=== PATIENT | female | born 1995 | race Caucasian/White ===

== ENCOUNTER 2016-06-24 04:00 | Inpatient (IN) ==
[2016-06-24] MEDS ORDERED: miSOPROStol 25 MCG TABLET VG PRN (04:30)
[2016-06-24] MEDS ORDERED: Naloxone 0.4 MG/ML INJ IVP PRN (04:30)
[2016-06-24] MEDS ORDERED: Ondansetron 4 MG/2 ML VIAL IVP PRN (04:30)
[2016-06-24] MEDS ORDERED: Famotidine 20 MG/2 ML VIAL IVP PRN (04:30)
[2016-06-24] MEDS ORDERED: Ringers Solution, Lactated 1,000 ML IVC SCH (04:30)
[2016-06-24] MEDS ORDERED: Metoclopramide 10 MG/2 ML VIAL IVP PRN (04:50)
[2016-06-24 04:58] LABS: Basophils % 0.4 %; Eosinophils # 0.1 K/mcL (0.0-0.6); Eosinophils % 0.7 %; Hematocrit 38.3 % (35.3-44.9); Hemoglobin 13.4 g/dL (11.5-15.4); Lymphocytes # 2.2 K/mcL (0.6-4.6); Lymphocytes % 19.4 %; Mean Corpuscular Volume 91.4 fL (83.0-100.0); Mean Platelet Volume 11.7 fL (9.4-12.4); Monocytes # 0.8 K/mcL (0.0-1.3); Monocytes % 6.8 %; Platelet Count 186 K/mcL (140-400); Red Blood Count 4.19 M/mcL (3.82-4.97); Red Cell Distribution Width 12.1 % (11.5-14.5); Segmented Neutrophils % 71.7 %
[2016-06-24] MEDS ORDERED: *HR* Nalbuphine 20 MG/ML AMPUL IVP PRN (07:32)
[2016-06-24] MEDS ORDERED: *HR* Nalbuphine 20 MG/ML AMPUL ONE (07:35)
--- NOTE | 2016-06-24 07:38 | OB/GYN History & Physical ---
Date of Encounter: 06/24/16 Time of Encounter: 07:34 Assessment and Plan (1) 39 weeks gestation of Current visit: Yes Status: Acute Scheduled IOL for grade 3 placenta, term with a favorable cervix. Morrison score of 9 when IOL was scheduled. Admit as inpatient. History of Present Illness Chief complaint: Induction of labor HPI: Ms. Witt is a 20 year old female at 39w4d presents to labor and delivery for IOL. IOL was recommended by Dr. Negrete for Grade 3 placenta at 36 weeks gestation. Patient's morrison score was 9 on induction consent. Cytotec 25 mcg was placed vaginally at 0507 and SROM at 0550 clear fluid. Blood type: O+, Rubella: Immune, Hep B: Nonreactive, GBS: Negative. Patient has NKDA. Past Med Surg Social Fam HX - Past Medical History Source: patient Medical history: no medical history Psychiatric history: no psych history - Past Surgical History Surgical History: no surgical history - Social History Smoking Status: Current every day smoker Smokeless Tobacco Status: No (1/2 PPD) Alcohol use: occasionally Drug use: none Occupational status: employed Current living situation: Home - Independent Activity Level: Independent ambulation Recent Out of Country Travel Within the Last 8 Weeks: No Exposure or Possible Exposure to Illness During Travel: No - Family History Mother Living Status: Still Living Hx Family Cardiac Disorders: No Hx Family Respiratory Disorders: No Hx Family Cancer: No Hx Family GI Disorders: No Hx Family Genitourinary Disorders: No Hx Family Endocrine Disorder: No Hx Family Musculoskeletal Disorders: No Hx Family Neuromuscular Disorders: No Hx Family Neurologic Disorders: No Hx Family HEENT Disorders: No Hx Family Autoimmune Disorders: No Hx Family Reproductive Disorders: No Hx Family Psychosocial Disorders: No Hx Family Medical Disorders: No Obstetrical History - Pregnancies : 1 Para: 0 Term: 0 : 0 Ab's: 0 Livin Medications and Allergies Vit No.129/Iron/FA [ Tablet] 1 each PO DAILY 06/24/16 [History] Ranitidine HCl [Zantac] 150 mg PO BID 06/24/16 [History] Allergies No Known Allergies Allergy (Verified 10/10/15 22:55) Review of System OB - Constitutional Constitutional ROS IM: no chills, no fever(s), no headache(s) - Cardiovascular Cardiovascular: no chest pain, no palpitations, no pedal edema, no syncope - Respiratory Respiratory: no cough, no dyspnea - Gastrointestinal Gastrointestinal: no constipation, no diarrhea, no heartburn, no nausea, no vomiting - Genitourinary Genitourinary: no abnormal vaginal bleeding, no dysuria, no flank pain, no urinary incontinence, no urinary urgency, no vaginal odor, no vaginal pruritis Exam - Constitutional Constitutional: well developed, well nourished, no acute distress, average body habitus - HEENT HEENT: Normocephaly, Mucus Membranes Moist - Neck Neck exam: full ROM, supple - Lungs Respiratory exam: CTAB - Cardiovascular Cardiovascular exam: RRR, +S1, +S2 - Abdomen Abdomen: Present: bowel sounds normal, gravid, non tender - Extremities Extremities exam: normal capillary refill, normal inspection Deep Tendon Reflex Grade: 2+ Normal (no clonuse) - Vagina Vagina: Present: normal moisture - Cervix Dilation: 3 Effacement: 90 Station: -1 - Uterus Uterus exam: Present: normal size, normal contour - Anus/Rectum Anus/Rectum: Present: normal perianal skin - Comments Comments: FHR 135 bpm moderate variability +15x15 accels no decels noted. Cat. 1 tracing. Contractions every 1.5-2.5 min apart. Results Result Diagrams: 06/24/16 04:45 Abnormal lab results WBC 11.2 K/mcL (4.3-11.1) H 06/24/16 04:45 All other labs normal. - VTE Reasons for not Prescribing Prophylaxis: Treatment not Indicated - Low risk for VTE
[2016-06-24] MEDS ORDERED: EPHEDrine 50 MG/ML VIAL IVP PRN (08:02)
[2016-06-24] MEDS ORDERED: Ringers Solution, Lactated 500 ML IVC ONE (08:02)
[2016-06-24] MEDS ORDERED: Epidural Premix (fent/bupiv) 110 ML EP SCH (08:15)
--- NOTE | 2016-06-24 08:18 | Anesthesia Evaluation PreOp ---
Date of Encounter: 06/24/16 Time of Encounter: 08:16 - Past History Planned Operation: EVA Cardiac History: Denies any Significant Hx Pulmonary History: Former smoker, Pack/yr (1/2 PPD, quit before ) BOOKING OFFICER History: Denies Any Significant HX Other Medical History: Denies Any Significant HX Anesthesia History: No Prior Anesthetic Complications : Yes Alcohol Use: occasionally Drug use: none Medications and Allergies Vit No.129/Iron/FA [ Tablet] 1 each PO DAILY 06/24/16 [History] Ranitidine HCl [Zantac] 150 mg PO BID 06/24/16 [History] Allergies No Known Allergies Allergy (Verified 10/10/15 22:55) - Meds/Allergy Pre-op Review Medications Reviewed: Yes Allergies Reviewed: Yes Beta Blockers on Current Med List: No Anesthesia Results - Labs 06/24/16 04:45 Anesthesia Exam Height: 1.68 Weight: 83.2kg NPO (# of Hours): 5 Pain Scale: 4 Pain Scale Used: Numeric (1 - 10) - HEENT Pupil (Motor): Pupils equal Mallampati: II Teeth: Normal Oral Opening: Greater than 3 - BOOKING OFFICER LOC: Oriented BOOKING OFFICER Motor: Normal RUE, Normal LUE, Normal RLE, Normal LLE, Normal Face BOOKING OFFICER Sensory: Normal: RUE, LUE, RLE, LLE, Face - Cardiac Rhythm: Regular Murmur: None JVD: No Carotid Bruit: No - Pulmonary Breath Sounds: bilateral Clear Respiratory Effort: Symmetrical Anesthesia Assess/Plan ASA Score: 2 Modified Cyndi Scale for Level of Consciousness: Cooperative, oriented, and tranquil Anesthetic Plan: General (plan b), Regional (plan a) Autologous Blood: Yes Monitoring Plan: Standard Monitors Recovery Plan: PACU
[2016-06-24] MEDS ORDERED: Methylergonovine 0.2 MG/ML AMPUL IM ONE (09:42)
--- NOTE | 2016-06-24 10:24 | OB Labor Progress Note ---
Date of Encounter: 06/24/16 Time of Encounter: 10:22 Labor Progress Note - Subjective Subjective: Pt reports moderate discomfort with contractions since receiving Nubain. She is considering an epidural soon. - Cervix Cervix: 3/80/-1 - Heart Tones Heart Tones: Category I - Geiger Geiger: unable to assess at this time. Pt reports every 2-4 minutes - Plan Plan: Pt to get epidural. Will placed IUPC following epidural and then augment labor with pitocin as needed.
[2016-06-24] MEDS ORDERED: Epidural Premix (fent/bupiv) 110 ML EP ONE ×2 (10:31→16:58)
--- NOTE | 2016-06-24 11:24 | OB Labor Progress Note ---
Date of Encounter: 06/24/16 Time of Encounter: 11:23 Labor Progress Note - Subjective Subjective: Pt comfortable with epidural. - Cervix Cervix: 4/90/-1 - Heart Tones Heart Tones: Category I - Interventions Interventions: IUPC placed - Plan Plan: Will begin pitocin augmentation. Anticipate .
[2016-06-24] MEDS ORDERED: Oxytocin 20 units/ LR 1000 mL 20 UNIT/1,000 ML BAG IVC SCH (11:30)
--- NOTE | 2016-06-24 11:39 | Anesthesia Procedures ---
Date of Encounter: 06/24/16 Time of Encounter: 11:37 Procedures: Anesthesia - Epidural/Spinal Patient ID/Chart reviewed: Yes Patient examined: Yes OB Eval: Gestational age: 39 OB Eval: : 1 OB Eval: Hx Para: 0 OB Eval: Dilated at (cm): 4 OB Eval: Contractions: Non-stressed pattern Consent Obtained: Yes Supplemental Oxygen: None/Room Air Site Prep: Aseptic Technique, Sterile prep and drape, Povidone-Iodine 1% Patient position: upright Local Anesthetic: Lidocaine 1% Amount of Local Anesthetic used: 3 Touhy Needle Gauge: 18 Touhy Needle Depth (cm): 8 Catheter Depth at Skin (cm): 15 Test Dose (1.5% Lido + Epi): Volume given (mls): 5 Test Dose Result: Negative Loading Dose: Other: 5mls of epidural pharm bag solution Loading Dose Administered: Thru Catheter Infusion Med: 0.125% Bupivacaine w/ 2 mcg/ml Fentanyl Infusion Rate (mls/hr): 15 ([id number] pcea) Catheter Secured in Place: Tegaderm, Tape Interspace Used: L3-L4 Loss of Resistance (JELLY): Yes Blood: No CSF: No Paresthesia: No Procedure: pt tolerated procedure well. no complications. vss. see qs for complete vitals on pt.
--- NOTE | 2016-06-24 15:22 | OB Labor Progress Note ---
Date of Encounter: 06/24/16 Time of Encounter: 15:20 Labor Progress Note - Subjective Subjective: Pt comfortable with epidural - Cervix Cervix: 4/90/0 - Heart Tones Heart Tones: [place] I - [place]: Q3 minutes - Plan Plan: Pt repositioned to left lateral with peanut ball. Continue to monitor. Frequent position changes. Continue to titrate pitocin for adequate contractions. Anticipate .
--- NOTE | 2016-06-24 17:22 | OB Labor Progress Note ---
Date of Encounter: 06/24/16 Time of Encounter: 17:20 Labor Progress Note - Subjective Subjective: Patient resting with epidural in place. Patient denies any pain at this time. Pitocin at 14 milliunits - Cervix Cervix: 6/100/-1 - Heart Tones Heart Tones: 135 bpm moderate variability +15x15 accels no decels noted at this time. Cat. 1 tracing. - [place]: 1.5-3 min apart - Interventions Interventions: SVEm pericare, patient repositioned. - Plan Plan: Continue labor management.
--- NOTE | 2016-06-24 19:14 | OB Labor Progress Note ---
Date of Encounter: 06/24/16 Time of Encounter: 19:11 Labor Progress Note - Subjective Subjective: Patient resting. Reports occasional pressure. - Cervix Cervix: 8/100/0 - Heart Tones Heart Tones: 140 bpm moderate variability +15x15 accels occasional variable noted. - [employer]: contractions every 4 min apart. - Interventions Interventions: SVE, patient repositioned. - Plan Plan: Continue labor management
[2016-06-25] MEDS ORDERED: Methylergonovine 0.2 MG/ML AMPUL IM ONE (00:33)
--- NOTE | 2016-06-25 00:40 | OB/GYN Procedure Note ---
Delivery - Delivery Date: 06/25/16 Provider: Josseline Acevedo Delivery induction: AROM, oxytocin, misoprostol Delivery monitor: external FHT, internal uterine Anesthesia: epidural Estimated Blood Loss: 475 - (s) A Delivery Date: 06/25/16 Infant Delivery Time: 00:02 Presentation: vertex Position: EULOGIO Route of delivery: Gender: Male Viability: Viable Pounds: 6 Ounces: 14 Weight Gram: 3120 kg at 1 minute: 8 at 5 mins: 9 Shoulder Dystocia: not encountered Specimens collected: cord blood Placenta: spontaneous, uterine exploration Cord: nuchal cord, 3 umbilical vessels, delivered through nuchal - Repair Episiotomy: none Laceration Description: Periurethral, Labial (bilateral repaired with 4-0 vicryl ) - Complications Delivery complications: uterine atony Delivery comments: Called to delivery room patient feeling pressure. Patient began pushing with contractions. Spontaneous delivery of male . delivered through nuchal and was placed on maternal abdomen. Cord was clamped and cut after pulsation ceased. placed skin to skin. Bilateral labial lacerations repaired with 4-0 vicryl. superficial periurethral that is hemostatic. Placenta delivered spontaneously following placenta was a large gush of blood. Uterine massage was performed while awaiting methergine. 0.2mcg given in left thigh IM. Uterus became firm and bleeding slowed. Pericare was provided. Both mother and baby stable in recovery. - Disposition Mom disposition: stable in LDR [place] disposition: stable in LDR
[2016-06-25] MEDS ORDERED: Acetaminophen 325 MG TABLET PO PRN (01:27)
[2016-06-25] MEDS ORDERED: Oxytocin 20 units/ LR 1000 mL 20 UNIT/1,000 ML BAG IVC ONE (01:27)
[2016-06-25] MEDS ORDERED: Benzocaine/Menthol 56 GM AEROSOL SPRAY TP PRN (01:27)
[2016-06-25] MEDS ORDERED: Oxytocin 20 units/ LR 1000 mL 20 UNIT/1,000 ML BAG IV SCH (01:27)
[2016-06-25] MEDS ORDERED: Lanolin 7 G OINT...G. TP PRN (01:27)
[2016-06-25] MEDS ORDERED: *HR* HYDROcodone/Acet 5/325 mg TABLET PO PRN (01:27)
[2016-06-25] MEDS: Ibuprofen 600 MG TABLET PO PRN ×3 (03:49→16:42)
[2016-06-25 03:54] LABS: Basophils % 0.1 %; Eosinophils % 0.1 %; Hematocrit 32.2 % (35.3-44.9); Immature Granulocytes % 0.6 % (0-4); Lymphocytes # 1.5 K/mcL (0.6-4.6); Lymphocytes % 8.7 %; Mean Corpuscular HGB Conc 35.1 g/dL (31.6-35.5); Mean Corpuscular Hemoglobin 31.9 pg (28.0-33.3); Mean Platelet Volume 11.8 fL (9.4-12.4); Platelet Count 138 K/mcL (140-400); Red Blood Count 3.54 M/mcL (3.82-4.97); Red Cell Distribution Width 11.9 % (11.5-14.5); Segmented Neutrophils % 84.5 %
[2016-06-25 04:18] LABS: Hemoglobin 11.3 g/dL (11.5-15.4); Neutrophils # 14.5 K/mcL (1.6-8.9)
[2016-06-25] MEDS ORDERED: Prenatal Vit/FA 1 EACH TABLET PO SCH (09:00)
[2016-06-26 08:33] VITALS: BP 118/78
--- NOTE | 2016-06-26 10:18 | Discharge Summary ---
Date of Encounter: 06/26/16 Time of Encounter: 10:16 - Discharge Diagnosis (1) (normal spontaneous vaginal delivery) Priority: Primary Status: Acute Comments: Pt meeting milestones. - Discharge Medications Prescriptions: Ibuprofen [Motrin] 600 mg PO Q6HR PRN #60 tablet PRN Reason: Cramping Docusate [Colace] 100 mg PO BID #60 capsule Home Medications: Vit No.129/Iron/FA [ One Daily Tablet] 1 each PO DAILY [History] Ranitidine HCl [Zantac] 150 mg PO BID 06/24/16 [History] Benzocaine/Menthol Leroy [Dermoplast Leroy] 1 appl TP QID PRN #0 aerosol [Rx] Docusate [Colace] 100 mg PO BID #60 capsule 06/26/16 [Rx] Ibuprofen [Motrin] 600 mg PO Q6HR PRN #60 tablet 06/26/16 [Rx] Lanolin [Lansinoh] 1 appl TP TID PRN #0 oint...g. 06/26/16 [Rx] Allergies/Adverse Reactions: Allergies No Known Allergies Allergy (Verified 10/10/15 22:55) Data Procedures and tests throughout hospitalization: Laboratory Tests 06/24/16 06/25/16 04:45 03:21 WBC 11.2 H 17.2 H D RBC 4.19 3.54 L Hgb 13.4 11.3 L D Hct 38.3 32.2 L MCV 91.4 91.0 MCH 32.0 31.9 MCHC 35.0 35.1 RDW 12.1 11.9 Plt Count 186 138 L MPV 11.7 11.8 Immature Gran % 1.0 0.6 Seg Neutrophils % 71.7 84.5 Lymphocytes % 19.4 8.7 Monocytes % 6.8 6.0 Eosinophils % 0.7 0.1 Basophils % 0.4 0.1 Neutrophils # 8.0 14.5 H Lymphocytes # 2.2 1.5 Monocytes # 0.8 1.0 Eosinophils # 0.1 0.0 Basophils # 0.0 0.0 Date of admission: 06/24/16 04:17 Primary care physician: PCP NO Consults: 06/25/16 01:27 Consult to Extender [CONS] Routine Comment: Vaginal delivery, consult needed Discharging clinician: Cecile Avelar Anticipated date of discharge: 06/26/16 - Patient Status Disposition: Home, Self-Care Condition: Good Functional capacity at discharge: independent ambulation Overall status at discharge: patient is progressing back to baseline - Discharge Instructions Follow Up With: Cecile Avelar CNM [Non-Partnered Physician] - (July 26, 2016 @ 3:00 pm ) NO,PCP [Primary Care Provider] - - Diet and Activity Activity: increase activity as tolerated Diet: advance to your usual diet Hospital Course Reason for admission: induction of labor Delivery: Episiotomy: none Laceration: other (periurethral and labial) Other procedures: none complications: none Discharge diagnosis: IUP at term delivered baby: male Hospital course: - Delivery Date: 06/25/16 Provider: Josseline Acevedo Delivery induction: AROM, oxytocin, misoprostol Delivery monitor: external FHT, internal uterine Anesthesia: epidural Estimated Blood Loss: 475 - (s) A Delivery Date: 06/25/16 Infant Delivery Time: 00:02 Presentation: vertex Position: EULOGIO Route of delivery: Gender: Male Viability: Viable Pounds: 6 Ounces: 14 Weight Gram: 3120 kg at 1 minute: 8 at 5 mins: 9 Shoulder Dystocia: not encountered Specimens collected: cord blood Placenta: spontaneous, uterine exploration Cord: nuchal cord, 3 umbilical vessels, delivered through nuchal - Repair Episiotomy: none Laceration Description: Periurethral, Labial (bilateral repaired with 4-0 vicryl ) - Complications Delivery complications: uterine atony - Disposition Mom disposition: home PPD#1 [place] disposition: home with mother, Time Attestation: Total time spent providing and/or coordinating discharge services: Time Spent: Less than 30 minutes Exam - Constitutional Vitals: Temp Pulse Resp BP Pulse Ox 98.2 F 91 14 118/78 98 06/26/16 08:32 06/26/16 08:32 06/26/16 08:32 06/26/16 08:32 06/26/16 08:32 General appearance IM: A&O X 3, pleasant, no acute distress - Respiratory Respiratory exam: Present: CTAB - Cardiovascular Cardiovascular exam IM: Present: RRR, +S1, +S2 - GI/Abdominal GI/Abdominal exam IM: soft - Uterine Tone: Firm Uterus Position: 1 Finger Below Umbilicus - Extremities Exam Extremities exam IM: Present: normal inspection - Neurological Exam Neurological exam: normal gait, oriented X3 - Psychiatric Additional comments: reports good mood
== END 2016-06-26 12:00 | disposition home or self-care (01) | DRG 560 ==
LOC: 1NENULAB 04:17 → 1NENUOBS 06-25 02:52
PROVIDERS: ADMIT Advanced Practice Midwife; ATTEND Advanced Practice Midwife

== ENCOUNTER 2020-05-20 08:00 | Inpatient (IN) ==
[2020-05-20] MEDS ORDERED: miSOPROStoL 25 MCG TABLET VG PRN (08:10)
[2020-05-20] MEDS ORDERED: Lidocaine 1% 20 ML MDV INFILT PRN (08:10)
[2020-05-20] MEDS ORDERED: Ondansetron 4 MG/2 ML VIAL IVP PRN (08:10)
[2020-05-20] MEDS ORDERED: Metoclopramide 10 MG/2 ML VIAL IVP PRN (08:10)
[2020-05-20] MEDS ORDERED: Famotidine 20 MG/2 ML VIAL IVP PRN (08:10)
[2020-05-20] MEDS ORDERED: Naloxone 0.4 MG/ML INJ IVP PRN (08:10)
[2020-05-20] MEDS ORDERED: *HR* FentaNYL (PF) 100 MCG/2 ML VIAL IVP PRN (08:10)
[2020-05-20 08:43] LABS: Amphetamine Screen,Urine Negative ng/mL (Cutoff=1000); Barbiturate Screen,Urine Negative ng/mL (Cutoff=200); Benzodiazepines Screen,Urine Negative ng/mL (Cutoff=200); Cannabinoid Screen,Urine Negative ng/mL (Cutoff = 50); Cocaine Screen,Urine Negative ng/mL (Cutoff= 300); Opiate Screen,Urine Negative ng/mL (Cutoff=300); Phencyclidine Screen,Urine Negative ng/mL (Cutoff=25)
[2020-05-20 08:47] LABS: Basophils % 0.5 %; Eosinophils # 0.1 K/mcL (0.0-0.6); Eosinophils % 1.1 %; Hematocrit 35.2 % (35.3-44.9); Hemoglobin 11.7 g/dL (11.5-15.4); Immature Granulocytes % 1.3 % (0-4); Lymphocytes # 1.7 K/mcL (0.6-4.6); Lymphocytes % 20.4 %; Mean Corpuscular HGB Conc 33.2 g/dL (31.6-35.5); Mean Corpuscular Volume 93.1 fL (83.0-100.0); Mean Platelet Volume 11.2 fL (9.4-12.4); Monocytes # 0.5 K/mcL (0.0-1.3); Monocytes % 5.9 %; Neutrophils # 5.9 K/mcL (1.6-8.9); Platelet Count 175 K/mcL (140-400); Red Blood Count 3.78 M/mcL (3.82-4.97); Red Cell Distribution Width 12.3 % (11.5-14.5); Segmented Neutrophils % 70.8 %; White Blood Count 8.3 K/mcL (4.3-11.1)
[2020-05-20] MEDS ORDERED: Ropivacaine/PF 0.2% 20 ML VIAL EP ONE (08:55)
[2020-05-20] MEDS ORDERED: *HR* FentaNYL (PF) 100 MCG/2 ML VIAL EP ONE (08:55)
[2020-05-20] MEDS ORDERED: EPHEDrine 50 MG/ML VIAL IVP PRN (08:55)
[2020-05-20] MEDS ORDERED: Epidural Premix (fent/bupiv) 110 ML EP SCH (09:00)
[2020-05-20] MEDS: Ringers Solution, Lactated 1,000 ML IVC SCH ×3 (09:39→14:21)
[2020-05-20] MEDS ORDERED: *HR* FentaNYL (PF) 100 MCG/2 ML VIAL ONE ×2 (13:13→17:56)
[2020-05-20] MEDS ORDERED: Oxytocin 20 units/ LR 1000 mL 20 UNIT/1,000 ML BAG IVC ONE ×2 (14:19→18:41)
[2020-05-20] MEDS ORDERED: Oxytocin 20 units/ LR 1000 mL 20 UNIT/1,000 ML BAG IVC SCH ×2 (15:15→18:41)
[2020-05-20] MEDS ORDERED: Acetaminophen 325 MG TABLET PO PRN (18:41)
[2020-05-20] MEDS ORDERED: Benzocaine/Menthol 56 GM AEROSOL SPRAY TP PRN (18:41)
[2020-05-20] MEDS ORDERED: Lanolin 7 G OINT...G. TP PRN (18:41)
[2020-05-20] MEDS ORDERED: Ibuprofen 600 MG TABLET PO PRN (18:41)
[2020-05-21 07:56] VITALS: BP 132/85
[2020-05-21] MEDS ORDERED: Prenatal Vit/FA 1 EACH TABLET PO SCH (09:00)
== END 2020-05-21 17:34 | disposition home or self-care (01) | DRG 560 ==
LOC: 1NENULAB 08:00 → 1NENUOBS 20:28
PROVIDERS: ADMIT Advanced Practice Midwife; ATTEND Advanced Practice Midwife